=== PATIENT | male | born 1965 | race Caucasian/White ===

== ENCOUNTER 2022-03-04 10:20 | Outpatient (CLI) | payer BC | END 2022-03-04 10:21 | disposition home or self-care (01) | LOC: BICRAD 10:20 | PROVIDERS: ATTEND Family Medicine | DX: M79.671 Pain in right foot (principal) ==

== ENCOUNTER 2022-06-22 08:29 | Outpatient (CLI) | payer BC | END 2022-06-22 08:30 | disposition home or self-care (01) | LOC: LABBT 08:29 | PROVIDERS: ATTEND Thoracic Surgery (Cardiothoracic Vascular Surgery) | DX: Z20.822 Contact with and (suspected) exposure to COVID-19 (principal) | CPT/HCPCS: 87811 ==

== ENCOUNTER 2022-06-25 10:14 | Outpatient (CLI) | payer BC | END 2022-06-25 10:15 | disposition home or self-care (01) | LOC: RAD 10:14 | PROVIDERS: ATTEND Family Medicine | DX: R13.13 Dysphagia, pharyngeal phase (principal); K21.9 Gastro-esophageal reflux disease without esophagitis; K22.2 Esophageal obstruction | CPT/HCPCS: 74220 ==

== ENCOUNTER 2024-04-24 12:01 | Outpatient (CLI) | payer BC | END 2024-04-24 12:02 | disposition home or self-care (01) | LOC: SCSRAD 12:01 | PROVIDERS: ATTEND Neurological Surgery | DX: M79.642 Pain in left hand (principal); M79.641 Pain in right hand ==

== ENCOUNTER 2024-08-07 09:57 | Outpatient (CLI) | payer BC | END 2024-08-07 09:58 | disposition home or self-care (01) | LOC: SCSRAD 09:57 | PROVIDERS: ATTEND Family Medicine | DX: M79.672 Pain in left foot (principal); M19.072 Primary osteoarthritis, left ankle and foot; M77.52 Other enthesopathy of left foot and ankle ==